=== PATIENT | female | born 1995 | race Caucasian/White ===

== ENCOUNTER 2017-04-05 04:29 | Emergency (ER) | payer MEDICAID ==
[~2017-04-05] VITALS: Ht 165.1 cm; Wt 59.0 kg
[2017-04-05 04:30] VITALS: BP_SYST 115
--- NOTE | 2017-04-05 04:30 | NUR ---
Patient to ER bed 7 to gown for evaluation. Side rails up. Report given to Maksim FOOTE.
--- NOTE | 2017-04-05 04:40 | NUR ---
Pt states she started having abd pain that radiated to the back with dysuria. Will continue to monitor. No other injuries or complaints mentioned/noted. No distress noted.
[2017-04-05 05:18] LABS: BILIRUBIN,URINE NEGATIVE (NEGATIVE); BLOOD, URINE 3+ (NEGATIVE); CLARITY/URINE CLEAR (CLEAR); COLOR,URINE YELLOW (YELLOW); GLUCOSE,URINE NEGATIVE (NEGATIVE); KETONES,URINE NEGATIVE (NEGATIVE); LEUKOCYTE ESTERASE ,URINE 3+ (NEGATIVE); NITRITE, URINE NEGATIVE (NEGATIVE); PROTEIN URINE NEGATIVE (NEGATIVE); UROBILINOGEN,URINE 0.2 (0.2-1.0)
[2017-04-05 05:24] LABS: BACTERIA,URINE MODERATE /HPF (None Seen); WBC,URINE 50-80 /HPF (0-3)
--- NOTE | 2017-04-05 05:25 | NUR ---
ER Dr. Uriostegui at bedside examining patient.
[2017-04-05 05:45] VITALS: BP_SYST 115
[2017-04-05] MEDS ORDERED: PHENAZOPYRIDINE HCL 100 MG TABLET PO ONE (05:45)
[2017-04-05] MEDS ORDERED: SULFAMETHOXAZOLE/TRIMETHOPR DS 1 TABLET PO ONE (05:45)
--- NOTE | 2017-04-05 05:45 | NUR ---
Patient given written and verbal discharge instructions and verbalizes understanding. ER MD discussed with patient the results and treatment provided. Patient in stable condition. ID arm band removed. Rx of Pyridium and Bactrim given. Patient educated on pain management and to follow up with PMD. Pain Scale 2/10. Opportunity for questions provided and answered. No adverse reactions noted.
== END 2017-04-05 05:45 | disposition home or self-care (01) ==
LOC: SED 04:29
DX: N39.0 Urinary tract infection, site not specified (principal); K21.9 Gastro-esophageal reflux disease without esophagitis; R01.1 Cardiac murmur, unspecified
CPT/HCPCS: 81000-TC; 87086; 99284

== ENCOUNTER 2018-04-02 19:14 | Emergency (ER) | payer MEDICAID ==
[~2018-04-02] VITALS: Ht 165.1 cm; Wt 56.7 kg
[2018-04-02 19:20] VITALS: BP_SYST 126
--- NOTE | 2018-04-02 19:40 | NUR ---
Patient to ER bed 6 to gown for evaluation. Side rails up. Report given to [place]o FOOTE.
--- NOTE | 2018-04-02 19:45 | NUR ---
Patient AAO X4 sitting in bed c/o abnormal vaginal bleeding. Patient states she's having bleeding outside of her period and pelvic pain/ cramping. No severe bleeding reported. Will continue to monitor.
[2018-04-02 19:50] LABS: BILIRUBIN,URINE NEGATIVE (NEGATIVE); BLOOD, URINE 2+ (NEGATIVE); CLARITY/URINE CLEAR (CLEAR); COLOR,URINE YELLOW (YELLOW); GLUCOSE,URINE NEGATIVE (NEGATIVE); KETONES,URINE NEGATIVE (NEGATIVE); LEUKOCYTE ESTERASE ,URINE NEGATIVE (NEGATIVE); NITRITE, URINE NEGATIVE (NEGATIVE); PH,URINE 6.5 (5.0-8.0); PROTEIN URINE NEGATIVE (NEGATIVE); UROBILINOGEN,URINE 0.2 (0.2-1.0)
[2018-04-02 19:57] LABS: BASOPHILS # (AUTO) 0.2 K/uL (0.0-0.2); BASOPHILS % (AUTO) 1.5 % (0.0-2.0); EOSINOPHILS # (AUTO) 0.3 K/uL (0.0-0.4); EOSINOPHILS % (AUTO) 2.9 % (0.0-4.0); HEMATOCRIT 40.8 % (36-48); HEMOGLOBIN 13.8 g/dL (12.0-16.0); LYMPHOCYTES # (AUTO) 2.9 K/uL (1.0-5.5); LYMPHOCYTES % (AUTO) 28.7 % (20.5-51.5); MEAN CORPUSCULAR HEMOGLOBIN 31 pg (27-31); MEAN CORPUSCULAR HGB CONC 34 % (32-36); MEAN CORPUSCULAR VOLUME 92 fL (79.0-98.0); MONOCYTES # (AUTO) 0.8 K/uL (0.0-1.0); MONOCYTES % (AUTO) 7.8 % (1.7-9.3); NEUTROPHILS % (AUTO) 59.1 % (40.0-70.0); PLATELET COUNT (AUTO) 289 K/uL (130-430); RED BLOOD CELL COUNT(AUTO) 4.41 MIL/uL (4.2-6.2); RED CELL DISTRIBUTION WIDTH 12.1 % (9.0-15.0); WHITE BLOOD COUNT (AUTO) 10.2 K/uL (4.8-10.8)
--- NOTE | 2018-04-02 20:00 | NUR ---
GOSIA Hoang at bedside examining patient.
[2018-04-02 20:01] LABS: BACTERIA,URINE FEW /HPF (None Seen); CALCIUM 8.9 mg/dL (8.4-11.0); CREATININE 0.69 mg/dL (0.55-1.30); MUCUS,URINE None Seen /LPF (None Seen); POTASSIUM 3.5 mmol/L (3.5-5.1); RBC,URINE 0-3 /HPF (0-3); WBC,URINE NONE SEEN /HPF (0-3)
[2018-04-02 20:07] LABS: ALBUMIN 3.5 g/dL (3.4-4.8); TOTAL BILIRUBIN 0.3 mg/dL (0.0-1.0)
--- NOTE | 2018-04-02 20:30 | NUR ---
ER at bedside performing pelvic examination with DARY Dubon at bedside.
[2018-04-02 20:50] VITALS: BP_SYST 120
--- NOTE | 2018-04-02 20:50 | NUR ---
Patient given written and verbal discharge instructions and verbalizes understanding. ER MD discussed with patient the results and treatment provided. Patient in stable condition. ID arm band removed. No Rx given. Patient educated on pain management and to follow up with PMD. Pain Scale 0/10. Opportunity for questions provided and answered.
== END 2018-04-02 20:50 | disposition home or self-care (01) ==
LOC: SED 19:14
DX: N93.9 Abnormal uterine and vaginal bleeding, unspecified (principal); F43.21 Adjustment disorder with depressed mood
CPT/HCPCS: 36415; 80053; 81000-TC; 84702-TC; 85025; 99284

== ENCOUNTER 2018-09-11 08:50 | Emergency (ER) | payer MEDICAID ==
[~2018-09-11] VITALS: Ht 167.6 cm; Wt 61.2 kg
[2018-09-11 09:02] VITALS: BP_SYST 120
[2018-09-11 10:16] VITALS: BP_SYST 110
== END 2018-09-11 10:18 | disposition home or self-care (01) ==
LOC: SED 08:50
DX: B37.3 Candidiasis of vulva and vagina (principal)
CPT/HCPCS: 81002; 81025; 87491; 87591; 99283

== ENCOUNTER 2018-12-01 11:07 | Emergency (ER) | payer MEDICAID ==
[~2018-12-01] VITALS: Ht 165.1 cm; Wt 59.0 kg
[2018-12-01 11:11] VITALS: BP_SYST 108
[2018-12-01] MEDS ORDERED: ONDANSETRON HCL 4 MG/2 ML VIAL IVP ONE (12:00)
[2018-12-01] MEDS ORDERED: NS 500 ML IV ONE (12:00)
[2018-12-01] MEDS ORDERED: KETOROLAC TROMETHAMINE 30 MG VIAL IVP ONE (12:00)
[2018-12-01 13:01] LABS: BASOPHILS % (AUTO) 0.4 % (0.0-2.0); EOSINOPHILS # (AUTO) 0.1 K/uL (0.0-0.4); EOSINOPHILS % (AUTO) 0.9 % (0.0-4.0); HEMATOCRIT 44.1 % (36-48); LYMPHOCYTES # (AUTO) 2.4 K/uL (1.0-5.5); LYMPHOCYTES % (AUTO) 23.2 % (20.5-51.5); MEAN CORPUSCULAR HEMOGLOBIN 31 pg (27-31); MEAN CORPUSCULAR HGB CONC 34 % (32-36); MEAN CORPUSCULAR VOLUME 91 fL (79.0-98.0); MONOCYTES # (AUTO) 0.6 K/uL (0.0-1.0); NEUTROPHILS # (AUTO) 7.3 K/uL (1.8-7.7); NEUTROPHILS % (AUTO) 69.5 % (40.0-70.0); PLATELET COUNT (AUTO) 311 K/uL (130-430); RED BLOOD CELL COUNT(AUTO) 4.85 MIL/uL (4.2-6.2); RED CELL DISTRIBUTION WIDTH 12.9 % (9.0-15.0); WHITE BLOOD COUNT (AUTO) 10.5 K/uL (4.8-10.8)
[2018-12-01 13:03] LABS: BILIRUBIN,URINE NEGATIVE (NEGATIVE); BLOOD, URINE NEGATIVE (NEGATIVE); CLARITY/URINE CLEAR (CLEAR); COLOR,URINE YELLOW (YELLOW); GLUCOSE,URINE NEGATIVE (NEGATIVE); KETONES,URINE NEGATIVE (NEGATIVE); LEUKOCYTE ESTERASE ,URINE 3+ (NEGATIVE); NITRITE, URINE NEGATIVE (NEGATIVE); PROTEIN URINE NEGATIVE (NEGATIVE); UROBILINOGEN,URINE 0.2 (0.2-1.0)
[2018-12-01 13:12] LABS: BACTERIA,URINE FEW /HPF (None Seen); MUCUS,URINE 1+ /LPF (None Seen); RBC,URINE 0-3 /HPF (0-3)
[2018-12-01] MEDS ORDERED: CEPHALEXIN 500 MG CAPSULE PO ONE (15:00)
[2018-12-01 15:16] VITALS: BP_SYST 120
[2018-12-01] MEDS ORDERED: MICONAZOLE NITRATE 100 MG/SUPP.VAG EA VG SCH (21:00)
== END 2018-12-01 15:15 | disposition home or self-care (01) ==
LOC: SED 11:07
DX: O23.41 Unspecified infection of urinary tract in pregnancy, first trimester (principal); O23.591 Infection of other part of genital tract in pregnancy, first trimester; B37.3 Candidiasis of vulva and vagina; Z3A.01 Less than 8 weeks gestation of pregnancy
CPT/HCPCS: 36415; 81000; 81025; 83880; 84702; 85025; 87086; 87210; 96361; 96374; 99284; J2405; J7040

== ENCOUNTER 2019-07-17 16:05 | Observation (INO) | payer MEDICAID ==
[~2019-07-17] VITALS: Ht 165.1 cm; Wt 74.8 kg
== END 2019-07-17 18:30 | disposition home or self-care (01) ==
LOC: UNDOADMOB 16:05 → SPU 16:05
PROVIDERS: ADMIT Obstetrics & Gynecology; ATTEND Obstetrics & Gynecology
DX: O36.8130 Decreased fetal movements, third trimester, not applicable or unspecified (principal); Z3A.36 36 weeks gestation of pregnancy
CPT/HCPCS: 76819; G0378; 59025; 81002-TC

== ENCOUNTER 2019-08-13 04:45 | Inpatient (IN) | payer MEDICAID ==
[~2019-08-13] VITALS: Ht 165.1 cm; Wt 81.6 kg
[2019-08-13] MEDS ORDERED: LR 1,000 ML IV SCH ×2 (05:18→21:37)
[2019-08-13] MEDS ORDERED: OXYTOCIN/0.9 % SODIUM CHLORIDE 1,000 ML IV SCH (05:18)
[2019-08-13] MEDS ORDERED: TERBUTALINE SULFATE 1 MG/ML VIAL SUBCUT ONE (05:30)
[2019-08-13] MEDS ORDERED: DINOPROSTONE 10 MG SUPP VG ONE (05:30)
[2019-08-13] MEDS ORDERED: AMPICILLIN SODIUM 2 GM VIAL ONE (05:30)
[2019-08-13] MEDS ORDERED: AMPICILLIN SODIUM 2 GM in NS 100 ML IV ONE (05:30)
[2019-08-13] MEDS ORDERED: MORPHINE SULFATE 10 MG/ML VIAL IVP PRN (05:30)
[2019-08-13 06:10] LABS: BASOPHILS # (AUTO) 0.1 K/uL (0.0-0.2); BASOPHILS % (AUTO) 0.5 % (0.0-2.0); EOSINOPHILS # (AUTO) 0.1 K/uL (0.0-0.4); EOSINOPHILS % (AUTO) 1.2 % (0.0-4.0); HEMOGLOBIN 13.6 g/dL (12.0-16.0); LYMPHOCYTES # (AUTO) 2.8 K/uL (1.0-5.5); LYMPHOCYTES % (AUTO) 25.9 % (20.5-51.5); MEAN CORPUSCULAR HEMOGLOBIN 31 pg (27-31); MEAN CORPUSCULAR HGB CONC 35 % (32-36); MEAN CORPUSCULAR VOLUME 90 fL (79.0-98.0); MONOCYTES # (AUTO) 0.9 K/uL (0.0-1.0); MONOCYTES % (AUTO) 8.7 % (1.7-9.3); NEUTROPHILS # (AUTO) 6.8 K/uL (1.8-7.7); NEUTROPHILS % (AUTO) 63.7 % (40.0-70.0); PLATELET COUNT (AUTO) 226 K/uL (130-430); RED BLOOD CELL COUNT(AUTO) 4.33 MIL/uL (4.2-6.2); RED CELL DISTRIBUTION WIDTH 12.7 % (9.0-15.0); WHITE BLOOD COUNT (AUTO) 10.7 K/uL (4.8-10.8)
[2019-08-13 06:20] VITALS: BP_SYST 127
[2019-08-13] MEDS: AMPICILLIN SODIUM 1 GM in NS 50 ML IV SCH ×3 (09:40→17:32)
[2019-08-13] MEDS ORDERED: AMPICILLIN SODIUM 1 GM VIAL ONE (10:03)
[2019-08-13] MEDS ORDERED: fentaNYL CITRATE/PF 100 MCG/2 ML AMP ONE ×3 (13:05→23:38)
[2019-08-13] MEDS ORDERED: ROPIVACAINE HCL/PF 0.2% 200 ML ONE (13:05)
[2019-08-13] MEDS ORDERED: LR 500 ML IV ONE (16:02)
[2019-08-13] MEDS ORDERED: FENT2mCg/mL-ROPIVA0.2%/NS EPID 200 ML EP SCH (16:15)
[2019-08-13] MEDS ORDERED: TEMAZEPAM 15 MG CAPSULE PO PRN (21:00)
[2019-08-13] MEDS ORDERED: OXYTOCIN/0.9 % SODIUM CHLORIDE 1,000 ML IV ONE (21:37)
[2019-08-13] MEDS ORDERED: ANUSOL 1 EA SUPP.RECT (PREPARATION H) RC PRN (21:45)
[2019-08-13] MEDS ORDERED: SENNOSIDES/DOCUSATE SODIUM 1 TAB TABLET(SENOKOT-S) PO PRN (21:45)
[2019-08-13] MEDS ORDERED: BISACODYL 10 MG/SUPPOSITORY RC PRN (21:45)
[2019-08-13] MEDS ORDERED: LANOLIN 7 GM OINT. TP PRN (21:45)
[2019-08-13] MEDS ORDERED: TERBUTALINE SULFATE 1 MG/ML VIAL ONE (21:56)
[2019-08-13] MEDS ORDERED: CEFAZOLIN 2 GM IVPB PREMIX 50 ML IV ONE ×2 (22:01→22:06)
[2019-08-13] MEDS ORDERED: LR 1,000 ML IV.SOLN IV ONE (22:06)
[2019-08-13] MEDS ORDERED: PROPOFOL 200MG/ 20ML VIAL (DIPRIVAN) IV ONE (22:06)
[2019-08-13] MEDS ORDERED: MORPHINE SULFATE 10MG/10ML PF AMP EP ONE (22:06)
[2019-08-13] MEDS ORDERED: NS IRRIG SOLN 1000 ML IR ONE (22:06)
[2019-08-13] MEDS ORDERED: DIPHENHYDRAMINE INJ 50 MG/ML VIAL IVP PRN (22:30)
[2019-08-13] MEDS ORDERED: MORPHINE SULFATE 10MG/10ML PF AMP EP SCH (22:30)
[2019-08-13] MEDS ORDERED: fentaNYL CITRATE/PF 100 MCG/2 ML AMP IVP PRN (22:30)
[2019-08-13] MEDS ORDERED: ONDANSETRON HCL 4 MG/2 ML VIAL IVP PRN (22:30)
[2019-08-13] MEDS ORDERED: NALBUPHINE HCL 10 MG/ML AMP IVP PRN (22:30)
[2019-08-13] MEDS ORDERED: NALOXONE HCL 0.4 MG/ML AMP (NARCAN) IVP PRN ×2 (22:30)
[2019-08-13] MEDS ORDERED: METHYLERGONOVINE MALEATE 0.2 MG/ML AMP ONE (22:39)
[2019-08-13 22:50] VITALS: BP_SYST 164
[2019-08-13] MEDS: fentaNYL CITRATE/PF 100 MCG/2 ML AMP IVP PRN ×3 (23:00→23:30)
[2019-08-13] MEDS ORDERED: MORPHINE SULFATE 10 MG/ML VIAL IM PRN (23:00)
[2019-08-13] MEDS ORDERED: HYDROcodone/ACETAMIN 5-325 MG TAB (NORCO/ VICODIN) PO PRN (23:00)
[2019-08-14] MEDS: KETOROLAC TROMETHAMINE 60 MG/2 ML VIAL IM PRN ×2 (01:31→10:26)
[2019-08-14 07:37] LABS: BASOPHILS # (AUTO) 0.1 K/uL (0.0-0.2); BASOPHILS % (AUTO) 0.4 % (0.0-2.0); EOSINOPHILS % (AUTO) 0.1 % (0.0-4.0); HEMATOCRIT 33.4 % (36-48); HEMOGLOBIN 11.6 g/dL (12.0-16.0); LYMPHOCYTES # (AUTO) 1.9 K/uL (1.0-5.5); LYMPHOCYTES % (AUTO) 12.7 % (20.5-51.5); MEAN CORPUSCULAR HEMOGLOBIN 31 pg (27-31); MEAN CORPUSCULAR HGB CONC 35 % (32-36); MEAN CORPUSCULAR VOLUME 90 fL (79.0-98.0); MONOCYTES # (AUTO) 0.7 K/uL (0.0-1.0); MONOCYTES % (AUTO) 4.5 % (1.7-9.3); NEUTROPHILS # (AUTO) 12.3 K/uL (1.8-7.7); NEUTROPHILS % (AUTO) 82.3 % (40.0-70.0); PLATELET COUNT (AUTO) 165 K/uL (130-430); RED CELL DISTRIBUTION WIDTH 12.8 % (9.0-15.0)
[2019-08-14] MEDS ORDERED: BUPIVACAINE /PF 0.5% 30 ML VIAL INJ ONE (10:16)
[2019-08-14] MEDS ORDERED: TERBUTALINE SULFATE 1 MG/ML VIAL SUBCUT ONE (14:45)
[2019-08-14] MEDS ORDERED: CEFAZOLIN 2 GM IVPB PREMIX 50 ML IV ONE (15:30)
[2019-08-14] MEDS: HYDROcodone/ACETAMIN 5-325 MG TAB (NORCO/ VICODIN) PO PRN ×2 (16:36→18:16)
[2019-08-14] MEDS: IBUPROFEN 600 MG TABLET PO SCH ×2 (18:12→23:59)
[2019-08-14] MEDS: OXYCODONE/ACETAMINOPHEN 5-325 TABLET PO PRN (22:30)
[2019-08-15] MEDS: IBUPROFEN 600 MG TABLET PO SCH ×3 (05:30→17:45)
[2019-08-15] MEDS: OXYCODONE/ACETAMINOPHEN 5-325 TABLET PO PRN ×2 (10:59→17:10)
[2019-08-15] MEDS: HYDROcodone/ACETAMIN 5-325 MG TAB (NORCO/ VICODIN) PO PRN (23:00)
[2019-08-16] MEDS: OXYCODONE/ACETAMINOPHEN 5-325 TABLET PO PRN ×4 (06:13→23:33)
[2019-08-16] MEDS: IBUPROFEN 600 MG TABLET PO SCH ×5 (06:14→23:33)
[2019-08-16] MEDS: DOCUSATE SODIUM 100 MG CAPSULE PO PRN ×2 (08:46→23:33)
[2019-08-16] MEDS: SIMETHICONE 80 MG TAB.CHEW PO PRN ×4 (08:46→23:32)
[2019-08-17] MEDS: DOCUSATE SODIUM 100 MG CAPSULE PO PRN (06:26)
[2019-08-17] MEDS: IBUPROFEN 600 MG TABLET PO SCH ×2 (06:26→12:04)
[2019-08-17] MEDS: SIMETHICONE 80 MG TAB.CHEW PO PRN (06:26)
[2019-08-17] MEDS: OXYCODONE/ACETAMINOPHEN 5-325 TABLET PO PRN ×2 (06:27→12:04)
== END 2019-08-17 13:40 | disposition home or self-care (01) | DRG 540 ==
LOC: SPU 04:45
PROVIDERS: ADMIT Obstetrics & Gynecology; ATTEND Obstetrics & Gynecology
PROC: 3E0P7VZ Introduction of Hormone into Female Reproductive, Via Natural or Artificial Opening (ICD-10-PCS; 2019-08-13)
PROC: 10D00Z1 Extraction of Products of Conception, Low, Open Approach (ICD-10-PCS; principal; 2019-08-13 22:15)
DX: O76 Abnormality in fetal heart rate and rhythm complicating labor and delivery (principal); O48.0 Post-term pregnancy; O99.824 Streptococcus B carrier state complicating childbirth; Z37.0 Single live birth; Z3A.40 40 weeks gestation of pregnancy
CPT/HCPCS: 36415; 81002-TC; 85025; 86592; 86886; 86900; 86901; 94760; J0290; J0690; J1885; J2210; J2274; J2590; J2704; J3010; J3105; J3490; J7120

== ENCOUNTER 2021-03-26 19:09 | Emergency (ER) | payer MEDICAID ==
[~2021-03-26] VITALS: Ht 162.6 cm; Wt 59.0 kg
[2021-03-26 19:25] VITALS: BP_SYST 134
--- NOTE | 2021-03-26 19:25 | NUR ---
PT TO REMAIN IN THE ER LOBBY UNTIL ER BED BECOMES AVAILABLE. URINE CUP PROVIDED.
--- NOTE | 2021-03-26 19:30 | NUR ---
PT AAO AND AMBULATORY REPORTING WORSENING PAIN, BURNING, AND BLOOD IN THE URINE X 1 DAY. PT DENIES ANY HISTORY AND REPORTS PAIN LEVEL 5/10 ON PAIN SCALE.
[2021-03-26 20:14] LABS: BILIRUBIN,URINE NEGATIVE (NEGATIVE); BLOOD, URINE 3+ (NEGATIVE); COLOR,URINE YELLOW (YELLOW); GLUCOSE,URINE NEGATIVE (NEGATIVE); KETONES,URINE NEGATIVE (NEGATIVE); LEUKOCYTE ESTERASE ,URINE 3+ (NEGATIVE); NITRITE, URINE NEGATIVE (NEGATIVE); PH,URINE 5.5 (5.0-8.0); PROTEIN URINE TRACE (NEGATIVE); UROBILINOGEN,URINE 0.2 (0.2-1.0)
[2021-03-26 20:21] LABS: CLARITY/URINE CLOUDY (CLEAR)
[2021-03-26 20:52] LABS: BACTERIA,URINE FEW /HPF (None Seen); MUCUS,URINE None Seen /LPF (None Seen); WBC,URINE >100 /HPF (0-3)
--- NOTE | 2021-03-26 21:12 | NUR ---
DR. CARROLL TO TRIAGE TO ASSESS.
[2021-03-26] MEDS ORDERED: CEFU250T85 PO (22:13)
[2021-03-26] MEDS ORDERED: PHEN-890 PO (22:15)
[2021-03-26 22:26] VITALS: BP_SYST 126
--- NOTE | 2021-03-26 22:26 | NUR ---
Patient given written and verbal discharge instructions and verbalizes understanding. ER MD discussed with patient the results and treatment provided. Patient in stable condition. ID arm band removed. Rx of ceftin given. Patient educated on pain management and to follow up with PMD. Pain Scale 0/10 Opportunity for questions provided and answered. Medication side effect fact sheet provided.
== END 2021-03-26 22:26 | disposition home or self-care (01) ==
LOC: SED 19:09
DX: N39.0 Urinary tract infection, site not specified (principal); Z79.899 Other long term (current) drug therapy
CPT/HCPCS: 81000; 81025; 87086; 99283

== ENCOUNTER 2023-03-29 09:37 | Observation (INO) | payer MEDICAID ==
[~2023-03-29] VITALS: Ht 165.1 cm; Wt 72.6 kg
[~2023-03-29 09:37] MED LIST: CEFU250T85 PO; PHEN-890 PO
[2023-03-29 09:44] VITALS: BP_SYST 127; PULSE 80; RESP 20; TEMP 97.7; O2SAT 98
[2023-03-29 10:18] LABS: BILIRUBIN,URINE NEGATIVE (NEGATIVE); BLOOD, URINE NEGATIVE (NEGATIVE); CLARITY/URINE CLEAR (CLEAR); COLOR,URINE YELLOW (YELLOW); GLUCOSE,URINE NEGATIVE (NEGATIVE); KETONES,URINE NEGATIVE (NEGATIVE); LEUKOCYTE ESTERASE ,URINE TRACE (NEGATIVE); NITRITE, URINE NEGATIVE (NEGATIVE); PROTEIN URINE NEGATIVE (NEGATIVE); UROBILINOGEN,URINE 0.2 (0.2-1.0)
[2023-03-29 10:20] VITALS: BP_SYST 127; PULSE 80; RESP 20; TEMP 97.7; O2SAT 98
[2023-03-29 10:28] LABS: BACTERIA,URINE FEW /HPF (None Seen); RBC,URINE NONE SEEN /HPF (0-3); WBC,URINE 0-3 /HPF (0-3)
== END 2023-03-29 13:30 | disposition home or self-care (01) ==
LOC: SED 09:37 → SPU 10:19
PROVIDERS: ADMIT Specialist; ATTEND Specialist
DX: O36.8130 Decreased fetal movements, third trimester, not applicable or unspecified (principal); O99.891 Other specified diseases and conditions complicating pregnancy; H53.8 Other visual disturbances; Z3A.39 39 weeks gestation of pregnancy
CPT/HCPCS: 81000; 87086; 99284; G0378